=== PATIENT | female | born 1950 | race Caucasian/White ===

== ENCOUNTER 2017-10-21 20:02 | Emergency (ER) | payer SELFPAY ==
[~2017-10-21] VITALS: Ht 170.2 cm; Wt 87.0 kg
[2017-10-21 20:53] LABS: HEMATOCRIT 42.2 % (36.0-46.0); HEMOGLOBIN 14.7 G/DL (11.9-15.5); MCH 32.9 PG (29.0-34.0); MCHC 34.8 G/DL (30.0-36.0); MCV 94.4 FL (83-99); PLATELET COUNT 236 K/uL (156-360); RBC DIS.WIDTH-CV 11.8 % (11.8-14.6); RBC DIS.WIDTH-SD 40.9 % (39-53); RED BLOOD COUNT 4.47 M/uL (3.80-5.20); WHITE BLOOD COUNT 8.1 K/uL (4.1-10.2)
[2017-10-21 21:03] LABS: ALBUMIN 4.7 g/dL (3.2-4.8); CHLORIDE 103 mEq/L (99-109); SODIUM 139 mEq/L (136-147)
[2017-10-21 21:04] LABS: AMYLASE 59 IU/L (1-118)
[2017-10-21 21:05] LABS: GLUCOSE 119 mg/dL (70-99); TOTAL PROTEIN 8.2 g/dL (6.4-8.3)
[2017-10-21 21:07] LABS: TOTAL BILIRUBIN 0.3 mg/dL (0.0-1.0)
[2017-10-21 21:09] LABS: ALKALINE PHOSPHATASE 89 IU/L (3-129); CREATININE 1.2 mg/dL (0.6-1.3); GFR ESTIMATE (CALCULATED) 48 mL/min/
[2017-10-21 21:10] LABS: UREA NITROGEN (BUN) 19 mg/dL (9-23)
[2017-10-21 21:11] LABS: AST (GOT) 27 IU/L (2-34)
[2017-10-21 21:12] LABS: ALT (GPT) 31 IU/L (3-49); LIPASE 19 U/L (1.0-51.0)
[2017-10-21 21:18] LABS: TROP-I INTERPRETATION NEGATIVE; TROPONIN-I < 0.01 ng/mL (0.0-0.30)
[2017-10-21 21:47] VITALS: BP 168/89
== END 2017-10-21 21:47 | disposition home or self-care (01) ==
LOC: EME 20:02
PROVIDERS: Nurse Practitioner Family
DX: G89.29 Other chronic pain (principal); M25.511 Pain in right shoulder; I45.10 Unspecified right bundle-branch block; R94.31 Abnormal electrocardiogram [ECG] [EKG]; I10 Essential (primary) hypertension; R73.03 Prediabetes; Z88.0 Allergy status to penicillin; Z91.041 Radiographic dye allergy status
CPT/HCPCS: 71046; 73030; 80053; 82150; 83690; 84484; 85027; 93005; 99281; 99284